=== PATIENT | female | born 1955 ===

== ENCOUNTER 2016-08-09 16:58 | Emergency (ER) | payer MEDICARE ==
[2016-08-09 17:03] VITALS: TEMP 98.5
--- NOTE | 2016-08-09 17:38 | C.PDOC ---
History Of Present Illness 60 year old female with a hx back pain and a FMHz of HTN, presents to the ER c/ o high bp since last night. Patient notes she had headaches and checked blood pressure and it was high. Patient reports going to the pharmacy to check BP and found to be at 180. The pharmacist told the patient to go to the ER to be evaluated. Patient notes feeling headaches and sensation of heart palpitation but denies chest pain, dizziness, visual changes, numbness or weakness, fever, chills, SOB, or any other complaints. Time Seen by Provider: 08/09/16 17:24 Chief Complaint (Nursing): High Blood Pressure History Per: Patient History/Exam Limitations: no limitations Onset/Duration Of Symptoms: Days Current Symptoms Are (Timing): Still Present Associated Symptoms: denies: Chest Pain, Dizziness, Blurred Vision Severity: Mild Recent travel outside of the [place]: No Additional History Per: Patient Past Medical History Reviewed: Historical Data, Nursing Documentation, Vital Signs Vital Signs: Last Vital Signs Temp 98.5 F 08/09/16 17:02 Pulse 92 H 08/09/16 17:02 Resp 18 08/09/16 17:02 BP 183/78 H 08/09/16 17:02 Pulse Ox 96 08/09/16 17:02 - Medical History PMH: Depression Other PMH: Back pain Family History: States: Hypertension - Social History Hx Alcohol Use: No Hx Substance Use: No Review Of Systems Except As Marked, All Systems Reviewed And Found Negative. Constitutional: Negative for: Fever, Chills Eyes: Negative for: Vision Change Cardiovascular: Positive for: Palpitations, Other (High blood pressure). Negative for: Chest Pain Respiratory: Negative for: Shortness of Breath Neurological: Negative for: Weakness, Numbness Physical Exam - Physical Exam Appears: Non-toxic, No Acute Distress Skin: Warm, Dry Head: Atraumatic, Normacephalic Eye(s): bilateral: Normal Inspection, PERRL, EOMI Chest: Symmetrical Cardiovascular: Rhythm Regular, No Murmur Respiratory: Normal Breath Sounds, No Rales, No Rhonchi, No Wheezing Extremity: No Pedal Edema, No Deformity Neurological/Psych: Oriented x3, Normal Speech, Normal Cognition, No Other (No focal deficit) ED Course And Treatment O2 Sat by Pulse Oximetry: 96 (RA) Pulse Ox Interpretation: Normal Medical Decision Making Medical Decision Making: Impression: 60 y/o c/o headaches and high blood pressure with association of chest palpitation since last night Plans: -EKG -Blood labs -IV fluids -Reassess and disposition - Scribe Statement The provider has reviewed the documentation as recorded by the Scribe Tracey duff All medical record entries made by the Scribe were at my direction and personally dictated by me. I have reviewed the chart and agree that the record accurately reflects my personal performance of the history, physical exam, medical decision making, and the department course for this patient. I have also personally directed, reviewed, and agree with the discharge instructions and disposition.
--- NOTE | 2016-08-09 17:43 | C.PDOC ---
History Of Present Illness 60 year old female with a PMH back pain and family history of HTN, presents to the ER complaining of high blood pressure since last night. Patient notes she had headache and checked blood pressure, and it was high. Patient reports going to the pharmacy to check her blood pressure today and found to be at 180. The pharmacist told the patient to go to the ER to be evaluated. Patient notes feeling headache and sensation of heart palpitation, but denies chest pain, dizziness, visual changes, numbness or weakness, fever, chills, SOB, or any other complaints. Time Seen by Provider: 08/09/16 17:24 Chief Complaint (Nursing): High Blood Pressure History Per: Patient History/Exam Limitations: no limitations Onset/Duration Of Symptoms: Days Current Symptoms Are (Timing): Still Present Associated Symptoms: denies: Chest Pain, Dizziness, Blurred Vision Severity: Mild Recent travel outside of the [place]: No Additional History Per: Patient Past Medical History Reviewed: Historical Data, Nursing Documentation, Vital Signs Vital Signs: Last Vital Signs Temp 98.5 F 08/09/16 17:02 Pulse 92 H 08/09/16 17:02 Resp 18 08/09/16 17:02 BP 183/78 H 08/09/16 17:02 Pulse Ox 96 08/09/16 17:44 - Medical History PMH: Back Problems, Depression Other PMH: Back pain Family History: States: Hypertension - Social History Hx Alcohol Use: No Hx Substance Use: No Review Of Systems Except As Marked, All Systems Reviewed And Found Negative. Constitutional: Negative for: Fever, Chills Eyes: Negative for: Vision Change Cardiovascular: Positive for: Palpitations, Other. Negative for: Chest Pain Respiratory: Negative for: Shortness of Breath Neurological: Negative for: Weakness, Numbness Psych: Positive for: Depression Physical Exam - Physical Exam Appears: No Acute Distress Skin: Warm, Dry Head: Atraumatic, Normacephalic, No Tenderness, No Swelling Eye(s): bilateral: Normal Inspection, PERRL, EOMI Nose: Normal Oral Mucosa: Moist Neck: Normal ROM Chest: Symmetrical Cardiovascular: Rhythm Regular, No Murmur Respiratory: Normal Breath Sounds, No Rales, No Rhonchi, No Wheezing Extremity: Normal ROM, No Pedal Edema, No Deformity, No Swelling Pulses: Left Radial: Normal Neurological/Psych: Oriented x3, Normal Speech, No Cerebellar Signs, Normal Motor, Normal Sensation, No Other (No focal deficit) Gait: Steady ED Course And Treatment - Laboratory Results Result Diagrams: 08/09/16 17:46 08/09/16 17:46 Lab Interpretation: No Acute Changes ECG: Interpreted By Me, Viewed By Me ECG Rhythm: Sinus Rhythm ECG Interpretation: No Acute Changes Rate From EC O2 Sat by Pulse Oximetry: 96 (RA) Pulse Ox Interpretation: Normal Medical Decision Making Medical Decision Making: Impression: 60 y/o c/o headache and high blood pressure Plans: -EKG -Blood labs -IV fluids -Reassess and disposition Progress: EKG obtained and reviewed normal sinus with no ST-T changes. Patient placed on teletypesetter monitor and remained normal sinus. BP checked by me and WNL 136/62. Labs ordered and reviewed unremarkable. Patient reevaluated and reports mild pressure like headache, otherwise denies chest pain, dizziness, SOB. Advise patient to follow up with PCP in 1-4 days for further evaluation. Disposition Counseled Patient/Family Regarding: Diagnosis, Need For Followup - Disposition Referrals: [facility] [Outside] Andrew Tran, [facility], [employer] [Advanced Practice Nurse] - Disposition: HOME/ ROUTINE Disposition Time: 18:25 Condition: STABLE Instructions: Hypertension (ED) - POA Present On Arrival: None - Clinical Impression Clinical Impression: HTN (hypertension) - Scribe Statement The provider has reviewed the documentation as recorded by the Scribe Tracey duff All medical record entries made by the Scribe were at my direction and personally dictated by me. I have reviewed the chart and agree that the record accurately reflects my personal performance of the history, physical exam, medical decision making, and the department course for this patient. I have also personally directed, reviewed, and agree with the discharge instructions and disposition.
[2016-08-09 17:51] LABS: HEMATOCRIT 36.7 % (34.0-47.0); MEAN CELL VOLUME 89.2 fL (81.0-99.0); MEAN CORPUSCULAR HEMOGLOBIN 29.8 pg (27.0-31.0); MEAN CORPUSCULAR HGB CONC 33.4 g/dL (33.0-37.0); MEAN PLATELET VOLUME 7.5 fL (7.2-11.7); RED CELL DISTRIBUTION WIDTH 12.8 % (11.5-14.5); WHITE BLOOD COUNT 6.7 K/uL (4.8-10.8)
[2016-08-09 17:55] LABS: CHLORIDE 101 mmol/L (98-107)
[2016-08-09 17:56] LABS: SODIUM 141 mmol/L (132-148)
[2016-08-09 17:57] LABS: POTASSIUM 3.8 mmol/L (3.6-5.2)
[2016-08-09 17:59] LABS: ALB/GLOB RATIO 1.4 (1.0-2.1); ALKALINE PHOSPHATASE 67 U/L (38-126); AST/SGOT 42 U/L (14-36); BILIRUBIN,TOTAL 0.6 mg/dL (0.2-1.3); BLOOD UREA NITROGEN 12 mg/dL (7-17); CARBON DIOXIDE 27 mmol/L (22-30); GFR AFRICAN-AMERICAN > 60; TOTAL PROTEIN 7.3 g/dL (6.3-8.3)
[2016-08-09 18:00] LABS: ALT/SGPT 58 U/L (9-52); GLUCOSE,RANDOM 97 mg/dL (65-105)
[2016-08-09 18:37] VITALS: BP 118/52; PULSE 72; RESP 10
[2016-08-09 18:45] VITALS: O2SAT 96
--- NOTE | 2016-08-12 07:42 | CARD ---
APPROVED REPORT EKG Measurement Heart [id number] <Conclusion> Normal sinus rhythm Normal ECG
== END 2016-08-09 19:01 | disposition home or self-care (01) ==
LOC: C.ER 16:58
DX: I10 Essential (primary) hypertension (principal)